=== PATIENT | male | born 1950 | race Caucasian/White ===

== ENCOUNTER 2023-11-05 15:33 | Emergency (ER) | payer MEDICARE, OTHER, SELFPAY ==
[2023-11-05] VITALS (14 sets, daily range): BP systolic 144–184; BP diastolic 83–101; PULSE 71–89; RESP 17–27; O2SAT 95–96; BMI 30.8
--- NOTE | 2023-11-05 15:54 | EKG_ITS ---
[place] [id number] [place] [id number] Test Date: 2023-11-05 Pat Name: Pete Erazo Department: [facility] Room: Gender: Male Electronic Warfare Technician: SAVANNA : 1950 Requested By: Order Number: [id number] Reading MD: Babak Goodman Measurements Intervals [place] Rate: 76 P: 6 IA: 314 QRS: 19 QRSD: 96 T: 3 QT: 388 QTc: 436 Interpretive Statements Sinus rhythm with 1st degree AV block Minimal voltage criteria for LVH, may be normal variant ( R in aVL ) Inferior infarct , age undetermined Cannot rule out Anterior infarct , age undetermined Electronically Signed On 11-05-2023 18:55:47 PDT by Babak Goodman
--- NOTE | 2023-11-05 15:54 | DI.RAD.S_ITS ---
PROCEDURE: XR CHEST 1V INDICATIONS: chest pain TECHNIQUE: One view of the chest was acquired. COMPARISON: None. FINDINGS: Surgical changes and devices: None. Lungs and pleura: Lungs are clear. No pleural effusions or pneumothorax. Mediastinum: Mediastinal contours appear normal. Heart size is enlarged. Bones and chest wall: No suspicious bony lesions. Overlying soft tissues appear unremarkable. IMPRESSION: Cardiomegaly. No focal pulmonary consolidations. Dictated by: Dk Duncan M.D. on 11/05/2023 at 16:44 Approved by: Dk Duncan M.D. on 11/05/2023 at 16:44
--- NOTE | 2023-11-05 15:58 | DI.CT.S_ITS ---
PROCEDURE: CT HEAD/BRAIN WO CON INDICATIONS: recent stroke/PERALES last week TECHNIQUE: Noncontrast 4.5 mm thick angled axial sections acquired from the foramen magnum to the vertex, with coronal and sagittal reformats. For radiation dose reduction, the following was used: automated exposure control, adjustment of mA and/or kV according to patient size. COMPARISON: None. FINDINGS: Image quality: Diagnostic. CSF spaces: Basal cisterns are patent. No extra-axial fluid collections. The ventricles are symmetric in size and shape. Brain: No intracranial bleeds or masses. There is cerebral volume loss for age, with resultant ventricular and sulcal prominence. There are periventricular and deep white matter chronic small vessel ischemic changes. There is intracranial internal carotid artery atherosclerosis. Skull and face: Calvarium and visualized facial bones appear intact, without suspicious lesions. Sinuses: Right maxillary sinus mucous retention cyst is partially visualized. Otherwise, the visualized sinuses and mastoids are clear. IMPRESSION: No acute intracranial pathology. Dictated by: Dk Duncan M.D. on 11/05/2023 at 16:07 Approved by: Dk Duncan M.D. on 11/05/2023 at 16:09
[2023-11-05 16:06] LABS: INR 1.1 (0.9-1.3); Prothrombin Time 12.2 SECONDS (9.4-12.5)
[2023-11-05 16:08] LABS: PTT Partial Thromboplastin Tim 41 SECONDS (25.1-36.5)
[2023-11-05 16:09] LABS: Alanine Aminotransferase 59 IU/L (<50); Albumin 4.5 g/dL (3.5-5.0); Albumin Globulin Ratio 1.3 (1.0-2.8); Alkaline Phosphatase 81 U/L (38-126); Aspartate Aminotransferase 33 IU/L (17-59); BUN Creatinine Ratio 15.2 (6-22); Bilirubin Total 0.7 mg/dL (0.2-1.3); Blood Urea Nitrogen 22 mg/dL (9-20); Calcium 9.8 mg/dL (8.4-10.2); Carbon Dioxide 29 mmol/L (22-32); Chloride 96 mmol/L (98-107); Creatine Kinase 75 U/L (55-170); Estimated Glomerular Filt Rate 51 mL/min (>60); Globulin 3.6 g/dL (1.7-4.1); Glucose 307 mg/dL (80-110); HEMOLYSIS 22 (0-50); Lipase 272 U/L (23-300); Magnesium 2.1 mg/dL (1.6-2.3); Potassium 4.8 mmol/L (3.4-5.1); Sodium 132 mmol/L (137-145); Total Protein 8.1 g/dL (6.3-8.2)
[2023-11-05 16:13] LABS: Add Manual Diff / Slide Review NO; Basophils Absolute Auto 0 /uL (0-100); Basophils Percent Auto 0.5 % (0-2); Eosinophils Absolute Auto 200 /uL (0-450); Eosinophils Percent Auto 2.8 % (2-4); Hematocrit 46.7 % (41-53); Hemoglobin 15.8 g/dL (13.5-17.5); Lymphocytes Absolute Auto 900 /uL (1100-4500); Lymphocytes Percent Auto 10.3 % (25-40); Mean Corpuscular HGB Conc 33.9 % (30-36); Mean Corpuscular Volume 88.4 fL (80-100); Monocytes Absolute Auto 700 /uL (0-900); Neutrophils Absolute Auto 6600 /uL (1500-7000); Neutrophils Percent Auto 78.4 % (50-75); Platelet Count 232 X10^3/uL (150-400); Red Blood Cell Count 5.28 X10^6/uL (4.5-5.9); Red Cell Distribution Width 13.4 % (11.6-14.8); White Blood Cell Count 8.4 X10^3/uL (4.5-11.0)
[2023-11-05 16:21] LABS: NT-proBNP (BNP-Adult 18+) 103 pg/mL (<125); Troponin I < 0.012 ng/mL (0.01-0.034)
--- NOTE | 2023-11-05 18:42 | ED.HA ---
HPI - Headache General Chief Complaint: Headache Stated Complaint: Head Pain, Stroke t-9 Time Seen by Provider: 11/05/23 18:03 Source: patient Mode of arrival: Ambulatory Limitations: no limitations History of Present Illness HPI Narrative: 73-year-old male. Proximally 1 month ago had an episode of a GI bleed. 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 He was taken off that medicine approximately 1 week later had a stroke. All of this happened while he was in [place]. He states that the symptoms that led him to the hospital when he had the stroke were balance issues. He states he still has some balance issues and some issues with doing [id number]-es-faud this left hand but otherwise all of his other symptoms have completely resolved. He was not currently on anticoagulation. He states he was sitting on his couch at home watching TV. He states he was nodding off in his head was flexing forward. He states that he woke up suddenly and lifted his head up when he suddenly got a sharp pain that he states went from the back of his head to the front of his head. He described it as ?a lightning bolt? lasted for seconds. Completely resolved. He currently now states he was just a slight headache what she describes as a ?tension? headache in the back of his head. He reports no other neurologic symptoms to include vision changes, speech issues, change in any balance issues, numbness or tingling in his upper and lower extremities. He denies chest pain, shortness of breath, nausea vomiting. Related Data Allergies Allergy/AdvReac Type Severity Reaction Status Date / Time No Known Drug Allergies Allergy Verified 11/05/23 15:40 Review of Systems Review of Systems ROS Unobtainable: All systems reviewed & are unremarkable except as noted in HPI and below Patient History alcohol intake frequency: holidays/special occasions only Alcohol type: wine Substance Use Type: does not use Exam Initial Vital Signs Initial Vital Signs: Vital Signs Pulse Rate 89 11/05/23 15:40 Respiratory Rate 20 11/05/23 15:40 Blood Pressure 184/101 H 11/05/23 15:40 Pulse Oximetry 96 11/05/23 15:40 Oxygen Delivery Method Room Air 11/05/23 15:40 Const General: cooperative, well developed and No ill appearing HENTN Head: normal to inspection and normocephalic Resp Effort & Inspection: normal respiratory effort Cardio Rate: regular rate GI Inspection: normal to inspection Skin General: no rashes or lesions noted Neuro General: patient alert, patient awake, patient oriented x3 and moves all extremities Cognition: normal cognition Speech: speech normal Motor: muscle tone normal throughout Extrem General: normal to inspection and capillary refill normal Scores GCS Justice coma scale eye opening: Spontaneous Candis coma scale verbal response: Orientated [place] coma scale motor response: Obey commands Justice coma scale total score: 15 Course Orders Ordered: ED Orders 11/05/23 15:48 Complete Blood Count AUTO DIFF Stat Comprehensive Metabolic Panel Stat Lipase Stat Magnesium Stat NT-proBNP (BNP-Adult 18+) Stat PTT Partial Thromboplastin Subhash Stat Prothrombin Time INR Stat Troponin & CK Cardiac Panel Stat 11/05/23 15:54 XR chest 1V Stat EKG-12 Lead Stat 11/05/23 15:58 CT head/brain wo con Stat Vital Signs Vital signs: Vital Signs - 8 hr 11/05/23 15:40 11/05/23 15:41 11/05/23 15:48 Pulse Rate 89 89 87 Respiratory Rate 20 22 Blood Pressure 184/101 H Pulse Oximetry 96 96 96 Oxygen Delivery Method Room Air 11/05/23 15:48 11/05/23 16:08 11/05/23 16:30 Pulse Rate 86 80 Respiratory Rate 18 Blood Pressure 156/93 H Pulse Oximetry 96 Oxygen Delivery Method 11/05/23 17:00 11/05/23 17:12 11/05/23 17:12 Pulse Rate 77 78 Respiratory Rate 21 27 H Blood Pressure 152/94 H Pulse Oximetry 96 96 Oxygen Delivery Method 11/05/23 17:15 11/05/23 17:15 11/05/23 17:30 Pulse Rate 75 74 Respiratory Rate 21 21 Blood Pressure 148/84 H Pulse Oximetry 95 96 Oxygen Delivery Method Room Air 11/05/23 17:30 11/05/23 17:45 11/05/23 17:45 Pulse Rate 76 Respiratory Rate 23 Blood Pressure 144/83 H 146/90 H Pulse Oximetry 96 Oxygen Delivery Method 11/05/23 18:00 11/05/23 18:00 11/05/23 18:15 Pulse Rate 72 71 Respiratory Rate 17 19 Blood Pressure 152/95 H Pulse Oximetry 96 96 Oxygen Delivery Method Room Air 11/05/23 18:15 11/05/23 18:29 11/05/23 18:30 Pulse Rate 71 Respiratory Rate 23 Blood Pressure 157/98 H 158/98 H Pulse Oximetry 96 Oxygen Delivery Method MDM - Headache Lab Data Attestation: I reviewed the patient's lab results. 11/05/23 15:48 11/05/23 15:48 Labs: Lab Results 11/05/23 Range/Units 15:48 WBC 8.4 (4.5-11.0) X10^3/uL RBC 5.28 (4.5-5.9) X10^6/uL Hgb 15.8 (13.5-17.5) g/dL Hct 46.7 (41-53) % MCV 88.4 (80-100) fL MCH 30.0 (26-34) PG MCHC 33.9 (30-36) % RDW 13.4 (11.6-14.8) % Plt Count 232 (150-400) X10^3/uL Neut % (Auto) 78.4 H (50-75) % Lymph % (Auto) 10.3 L (25-40) % [place] % (Auto) 8.0 (3-14) % Eos % (Auto) 2.8 (2-4) % Baso % (Auto) 0.5 (0-2) % Neut # (Auto) 6600 (5467-8430) /uL Lymph # (Auto) 900 L (5444-3087) /uL [place] # (Auto) 700 (0-900) /uL Eos # (Auto) 200 (0-450) /uL Baso # (Auto) 0 (0-100) /uL PT 12.2 (9.4-12.5) SECONDS INR 1.1 (0.9-1.3) APTT 41 H (25.1-36.5) SECONDS Sodium 132 L (137-145) mmol/L Potassium 4.8 (3.4-5.1) mmol/L Chloride 96 L (98-107) mmol/L Carbon Dioxide 29 (22-32) mmol/L BUN 22 H (9-20) mg/dL Creatinine 1.45 H (0.66-1.25) mg/dL Estimated GFR 51 L (>60) mL/min BUN/Creatinine Ratio 15.2 (6-22) Glucose 307 H (80-110) mg/dL Calcium 9.8 (8.4-10.2) mg/dL Magnesium 2.1 (1.6-2.3) mg/dL Total Bilirubin 0.7 (0.2-1.3) mg/dL AST 33 (17-59) IU/L ALT 59 H (<50) IU/L Alkaline Phosphatase 81 (38-126) U/L Total Creatine Kinase 75 (55-170) U/L Troponin I < 0.012 (0.01-0.034) ng/mL NT-Pro-B Natriuret Pep 103 (<125) pg/mL Total Protein 8.1 (6.3-8.2) g/dL Albumin 4.5 (3.5-5.0) g/dL Globulin 3.6 (1.7-4.1) g/dL Albumin/Globulin Ratio 1.3 (1.0-2.8) Lipase 272 (23-300) U/L Imaging Data Chest x-ray: Radiologist's Impression: PROCEDURE: XR CHEST 1V INDICATIONS: chest pain TECHNIQUE: One view of the chest was acquired. COMPARISON: None. FINDINGS: Surgical changes and devices: None. Lungs and pleura: Lungs are clear. No pleural effusions or pneumothorax. Mediastinum: Mediastinal contours appear normal. Heart size is enlarged. Bones and chest wall: No suspicious bony lesions. Overlying soft tissues appear unremarkable. IMPRESSION: Cardiomegaly. No focal pulmonary consolidations. CT scan - head: Radiologist's Impression: PROCEDURE: CT HEAD/BRAIN WO CON INDICATIONS: recent stroke/PERALES last week TECHNIQUE: Noncontrast 4.5 mm thick angled axial sections acquired from the foramen magnum to the vertex, with coronal and sagittal reformats. For radiation dose reduction, the following was used: automated exposure control, adjustment of mA and/or kV according to patient size. COMPARISON: None. FINDINGS: Image quality: Diagnostic. CSF spaces: Basal cisterns are patent. No extra-axial fluid collections. The ventricles are symmetric in size and shape. Brain: No intracranial bleeds or masses. There is cerebral volume loss for age, with resultant ventricular and sulcal prominence. There are periventricular and deep white matter chronic small vessel ischemic changes. There is intracranial internal carotid artery atherosclerosis. Skull and face: Calvarium and visualized facial bones appear intact, without suspicious lesions. Sinuses: Right maxillary sinus mucous retention cyst is partially visualized. Otherwise, the visualized sinuses and mastoids are clear. IMPRESSION: No acute intracranial pathology. ECG Data Attestation: I personally reviewed and interpreted this ECG as follows: Interpretation: Sinus rhythm Ventricular rate is 76 First-degree AV block FL interval through and 4 milliseconds Normal axis LVH No ST T wave changes MDM Narrative Medical decision making narrative: His workup here in the emergency department is unremarkable. I have low suspicion that this is an acute CVA. He was no findings of intracranial hemorrhage were increased intracranial pressure noted on the CT scan. He now has some discomfort palpation to the occipital muscle in the back of his head. I suspect that this was muscular in origin. I had a discussion with the patient regarding this. We will hold on changing any of his medications for now. Will discharge patient home with strict return precautions. He expressed understanding and agreement with the plan. Discharge Plan Departure Patient Disposition: Home Clinical Impression: Headache Instructions: DI for Headache Activity Restrictions/Additional Instructions: Recommend that you continue to follow all of the instructions given to you by your primary care doctor. Contact your primary care doctor for a follow-up. Return to the emergency department for new or worsening symptoms. Stand Alone Forms: Patient Portal/API
== END 2023-11-05 18:53 | disposition home or self-care (01) ==
PROVIDERS: Emergency Medicine; Emergency Provider Emergency Medicine
DX: R51.9 Headache, unspecified (principal); R07.9 Chest pain, unspecified; Z86.73 Personal history of transient ischemic attack (TIA), and cerebral infarction without residual deficits
CPT/HCPCS: 36415; 70450; 71045; 80053; 82550; 83690; 83735; 83880; 84484; 85025; 85610; 85730; 93005; 99284

== ENCOUNTER → 2024-01-13 08:13 | Outpatient (CLI) | payer MEDICARE, OTHER, SELFPAY ==
--- NOTE | 2024-01-13 08:14 | DI.ECHO.S_ITS ---
[facility]---------+ [facility] : : [address] : : [place] : : [id number] : : Phone: [phone] Echocardiogram Report + + :Name: JACQUIE MANCINI Study Date: 01/13/2024 Height: 69 in : :Hospital ReadingLocation: Weight: 218 lb : : Gender: Male BSA: 2.1 m2 : :: 1950 Age: 73 yrs BP: 141/91 mmHg: :Reason For Study: SHORTNESS OF BREATH : :Ordering Physician: MOISE, : :OZ Performed By: Rhina Brooke : :Referring: OZ KRAUS : + + Interpretation Summary 1) Normal left ventricular thickness, size, wall motion, and systolic function (EF 60-65%). 2) Normal right ventricular size with low normal function. 3) No significant valvular abnormalities. 4) No prior Echo available for comparison. Procedure: A two-dimensional transthoracic echocardiogram with color flow and Doppler was performed. The study quality was technically adequate. There is no prior echocardiogram noted for this patient. The patient was in sinus rhythm with heart rates between 68-70 bpm during the exam. Left Ventricle: The left ventricle is normal in size and wall thickness. The ejection fraction is estimated to be 60-65%. Left ventricular systolic function appears normal without focal wall motion abnormalities. Diastolic parameters suggest a relaxation abnormality of the left ventricle, consistent with probable normal filling pressures. Right Ventricle: The right ventricle is normal size. Right ventricular systolic function is at the lower limits of normal. Atria: The left atrial size is normal. Right atrial size is normal. There is no Doppler evidence for an interatrial shunt. Mitral Valve: The mitral valve leaflets appear mildly thickened, but open well. There is trace mitral regurgitation. Aortic Valve: The aortic valve is trileaflet. The aortic valve opens well. There is no aortic valve stenosis. There is trace aortic regurgitation. Tricuspid Valve: The tricuspid valve is normal in structure and function. There is a trace or physiologic amount of tricuspid regurgitation. Pulmonary artery pressures cannot be estimated because of the lack of a measurable TR jet velocity. Pulmonic Valve: The pulmonic valve leaflets are thin and pliable; valve motion is normal. There is mild to moderate pulmonic regurgitation. Great Vessels: The aortic root is borderline dilated. The ascending aorta is at the upper limits of normal in size. The inferior vena cava was not well visualized. Pericardium/ Pleura There is no pericardial effusion. There is no pleural effusion. MMode/2D Measurements & Calculations LVIDd: 4.2 cm LVOT diam: 2.1 cm LVIDs: 3.0 cm Ao root diam: 4.0 cm FS: 28.9 % asc Aorta Diam: 3.9 cm IVSd: 1.00 cm Ao Arch Diam (Prox Trans): 3.3 cm LVPWd: 0.79 cm LV hill. diameter/BSA (cm/m^2): 2.0 LV sys. diameter/BSA (cm/m^2): 1.4 LA A2 area: 16.1 cm2 RA long axis: 5.1 cm LA A4 area: 12.7 cm2 RA area: 13.7 cm2 LA length (vol): 4.8 cm RA vol: 31.6 ml LA vol: 36.0 ml RA : 14.8 ml/m2 LA vol index: 16.8 ml/m2 RVD1 (basal): 3.4 cm TAPSE: 1.5 cm Doppler Measurements & Calculations Ao V2 max: 104.2 cm/sec LVOT Max Feng: 87.8 cm/sec Ao V2 mean: 66.5 cm/sec LV V1 max P.1 mmHg Ao max P.3 mmHg LV V1 VTI: 16.8 cm Ao mean P.1 mmHg CHETAN(I,D): 3.0 cm2 Ao V2 VTI: 20.0 cm CHETAN(V,D): 3.0 cm2 sev ratio: 0.84 CHETAN indexed to BSA (cm^2/m^2): 1.4 MV E max feng: 53.7 cm/sec PA V2 max: 90.6 cm/sec MV A max feng: 84.5 cm/sec PA V2 mean: 65.2 cm/sec MV E/A: 0.64 PA mean P.9 mmHg Med Peak E' Feng: 3.9 cm/sec PA pr(Accel): 49.9 mmHg E/E' med: 13.7 Lat Peak E' Feng: 11.1 cm/sec E/E' lat: 4.8 E/e' average: 9.3 MV dec time: 0.17 sec SV(LVOT): 60.0 ml Reading Physician:09:21 AM
== END ==
LOC: ECHO 08:14
PROVIDERS: Referring Provider Internal Medicine Cardiovascular Disease; Visit Provider Internal Medicine Cardiovascular Disease
DX: I37.1 Nonrheumatic pulmonary valve insufficiency (principal); R06.02 Shortness of breath
CPT/HCPCS: 93306

== ENCOUNTER 2025-01-25 16:33 | Observation (INO) | payer MEDICARE, OTHER, SELFPAY ==
[2025-01-25] VITALS (16 sets, daily range): BP systolic 143–167; BP diastolic 83–95; PULSE 64–76; RESP 17–21; TEMP 36.9; O2SAT 93–96; BMI 31.2
--- NOTE | 2025-01-25 16:58 | DI.US.S_ITS ---
PROCEDURE: US PERIPH VENOUS LOW EXTREM RT INDICATIONS: R/O DVT TECHNIQUE: Real-time imaging, as well as color and pulse Doppler interrogation, were performed of the lower extremity deep veins from the inguinal ligament to the popliteal fossa, with documentation of the visualized calf veins. COMPARISON: None. FINDINGS AND IMPRESSION: DVT identified in the popliteal vein extending to the posterior tibial vein. No thrombus identified elsewhere. Dictated by: Ke Corbin M.D. on 01/25/2025 at 17:59 Approved by: Ke Corbin M.D. on 01/25/2025 at 17:59
--- NOTE | 2025-01-25 16:58 | ED.LOWEXIN ---
HPI - Extremity Injury (Lower) General Chief Complaint: Extremity Injury, Lower Stated Complaint: potential blood clot in r leg after 13 hr flight Time Seen by Provider: 01/25/25 16:57 Source: patient Mode of arrival: Ambulatory Related Data Allergies Allergy/AdvReac Type Severity Reaction Status Date / Time No Known Drug Allergies Allergy Verified 01/25/25 16:52 Patient History alcohol intake frequency: holidays/special occasions only Alcohol type: wine Exam Initial Vital Signs Initial Vital Signs: Vital Signs Temperature 98.4 F 01/25/25 16:52 Pulse Rate 64 01/25/25 16:52 Respiratory Rate 18 01/25/25 16:52 Blood Pressure 167/91 H 01/25/25 16:52 Pulse Oximetry 96 01/25/25 16:52 Oxygen Delivery Method Room Air 01/25/25 16:52 Course Vital Signs Vital signs: Vital Signs - 8 hr 01/25/25 16:52 Temperature 98.4 F Pulse Rate 64 Respiratory Rate 18 Blood Pressure 167/91 H Pulse Oximetry 96 Oxygen Delivery Method Room Air Discharge Plan Departure Referrals: Adrienne Kirkpatrick PA-C [Primary Care Provider, Family Practice]
[2025-01-25 17:30] LABS: Add Manual Diff / Slide Review NO; Hematocrit 45.6 % (41-53); Hemoglobin 15.7 g/dL (13.5-17.5); Lymphocytes Absolute Auto 900 /uL (1100-4500); Mean Corpuscular HGB Conc 34.4 % (30-36); Mean Corpuscular Hemoglobin 30.2 PG (26-34); Mean Corpuscular Volume 87.7 fL (80-100); Platelet Count 225 X10^3/uL (150-400)
[2025-01-25 17:40] LABS: INR 1.1 (0.9-1.3); Prothrombin Time 12.7 SECONDS (9.4-12.5)
[2025-01-25 17:43] LABS: PTT Partial Thromboplastin Tim 34 SECONDS (25.1-36.5)
[2025-01-25 17:44] LABS: Alanine Aminotransferase 40 IU/L (<50); Albumin 4.7 g/dL (3.5-5.0); Albumin Globulin Ratio 1.3 (1.0-2.8); Alkaline Phosphatase 67 U/L (38-126); Blood Urea Nitrogen 25 mg/dL (9-20); Calcium 9.9 mg/dL (8.4-10.2); Carbon Dioxide 26 mmol/L (22-32); Chloride 102 mmol/L (98-107); Estimated Glomerular Filt Rate 57 mL/min (>60); Globulin 3.6 g/dL (1.7-4.1); Glucose 164 mg/dL (70-99); HEMOLYSIS < 15 (0-50); Potassium 4.8 mmol/L (3.4-5.1); Sodium 138 mmol/L (137-145); Total Protein 8.3 g/dL (6.3-8.2)
--- NOTE | 2025-01-25 18:30 | P.HP_ITS ---
History of Present Illness History of Present Illness Date Patient Seen: 01/25/25 Chief complaint: potential blood clot in r leg after 13 hr flight Narrative: Chief complaint: Right leg tightness and pain secondary to DVT after a 13 hour flight History of present illness: 01/25: 74-year-old male with previous history of pulmonary embolus previously treated with Xarelto but stopped due to cost and also had a complication of some rectal bleeding got off of a 13 hour flight with some pain in his right leg that felt like another blood clot came to the emergency room for evaluation Right popliteal DVT was seen on ultrasound. Due to patient's history of bleeding complications patient was given 1 milligram/kilogram Lovenox and placed in observation Review of systems: No fevers chills rigors No chest pain shortness for breath No abdominal pain Physical exam Pre pleasant elderly male no acute distress HEENT unremarkable No respiratory labored No abdominal distention Bilateral lower extremity edema right greater than left Positive Homans sign right Assessment and plan: Popliteal DVT * 1 milligram/kilogram Lovenox tonight * Probable switch to either Lovenox at home or other anticoagulant Code status * Full code Disposition: * Observation 55 minutes were involved in evaluation of this patient including [id number] evaluation discussion with ER provider review of medical history Meds Home Medications and Allergies Allergies Allergy/AdvReac Type Severity Reaction Status Date / Time No Known Drug Allergies Allergy Verified 01/25/25 16:52 Exam Vital Signs (past 8 hours): - 01/25/25 16:52 01/25/25 17:58 01/25/25 17:58 Temperature 98.4 F Pulse Rate 64 66 Respiratory Rate 18 Blood Pressure 167/91 H 156/93 H Pulse Oximetry 96 95 Oxygen Delivery Method Room Air 01/25/25 18:00 01/25/25 18:03 01/25/25 18:04 Temperature Pulse Rate 69 67 Respiratory Rate 20 Blood Pressure 152/94 H Pulse Oximetry 96 96 Oxygen Delivery Method Oxygen Delivery Method Room Air Objective Labs 01/25/25 17:22 01/25/25 17:22 Labs: Laboratory Results - last 24 hr 01/25/25 17:22 WBC 7.5 RBC 5.20 Hgb 15.7 Hct 45.6 MCV 87.7 MCH 30.2 MCHC 34.4 RDW 14.1 Plt Count 225 Neut % (Auto) 75.5 H Lymph % (Auto) 11.8 L [place] % (Auto) 10.3 Eos % (Auto) 1.8 L Baso % (Auto) 0.6 Neut # (Auto) 5600 Lymph # (Auto) 900 L [place] # (Auto) 800 Eos # (Auto) 100 Baso # (Auto) 0 PT 12.7 H INR 1.1 APTT 34 Sodium 138 Potassium 4.8 Chloride 102 Carbon Dioxide 26 BUN 25 H Creatinine 1.32 H Estimated GFR 57 L BUN/Creatinine Ratio 18.9 Glucose 164 H Calcium 9.9 Total Bilirubin 0.7 AST 30 ALT 40 Alkaline Phosphatase 67 Total Protein 8.3 H Albumin 4.7 Globulin 3.6 Albumin/Globulin Ratio 1.3 Assessment & Plan Time-Based Coding :: [TOTAL MINUTES] spent with patient and on the chart (including review of chart, obtaining history, exam, reviewing outside data, placing orders, documenting exam and treatment plan, and counseling patient) on [DATE].
[2025-01-25] MEDS: ENOXAPARIN 100 MG/ML SYRINGE SUBCUT (18:43)
[2025-01-26] VITALS (19 sets, daily range): BP systolic 149–158; BP diastolic 83–84; PULSE 55–70; RESP 16–35; TEMP 36.5; O2SAT 89–95
[2025-01-26] MEDS: METOPROLOL IR 50 MG TABLET 150 MG PO (00:40)
[2025-01-26 01:13] LABS: Culture Indicated Urine Cult Not Indicated
[2025-01-26 06:44] LABS: Hematocrit 45.2 % (41-53); Hemoglobin 15.6 g/dL (13.5-17.5); Platelet Count 201 X10^3/uL (150-400)
--- NOTE | 2025-01-26 07:40 | P.DS_ITS ---
History of Present Illness History of Present Illness Chief complaint: potential blood clot in r leg after 13 hr flight Narrative: Chief complaint: Right leg tightness and pain secondary to DVT after a 13 hour flight History of present illness: 01/25: 74-year-old male with previous history of pulmonary embolus previously treated with Xarelto but stopped due to cost and also had a complication of some rectal bleeding got off of a 13 hour flight with some pain in his right leg that felt like another blood clot came to the emergency room for evaluation Right popliteal DVT was seen on ultrasound. Due to patient's history of bleeding complications patient was given 1 milligram/kilogram Lovenox and placed in observation Review of systems: No fevers chills rigors No chest pain shortness for breath No abdominal pain Physical exam Pre pleasant elderly male no acute distress HEENT unremarkable No respiratory labored No abdominal distention Bilateral lower extremity edema right greater than left Positive Homans sign right Assessment and plan: Popliteal DVT * 1 milligram/kilogram Lovenox tonight * Lovenox at home Code status * Full code Disposition: * Discharge to home 55 minutes were involved in evaluation of this patient including [id number] evaluation discussion with ER provider review of medical history Discharge Providers Provider Date of admission: 01/25/25 18:04 Discharge Date: 01/26/25 Primary care physician: Adrienne Kirkpatrick PA-C Discharge provider: Nawaf Quintana MD Exam Vital Signs (past 8 hours): - 01/26/25 00:00 01/26/25 00:30 01/26/25 01:00 Pulse Rate 70 67 68 Respiratory Rate 16 17 16 Blood Pressure Pulse Oximetry 93 90 L 01/26/25 01:30 01/26/25 02:00 01/26/25 02:30 Pulse Rate 63 62 56 L Respiratory Rate 16 17 17 Blood Pressure Pulse Oximetry 91 91 91 01/26/25 03:00 01/26/25 03:30 01/26/25 04:00 Pulse Rate 57 L 56 L 57 L Respiratory Rate 17 16 25 H Blood Pressure Pulse Oximetry 91 92 93 01/26/25 04:30 01/26/25 04:53 01/26/25 04:53 Pulse Rate 58 L 60 Respiratory Rate 22 26 H Blood Pressure 149/84 H Pulse Oximetry 93 94 01/26/25 05:00 01/26/25 05:30 Pulse Rate 65 57 L Respiratory Rate 29 H 16 Blood Pressure Pulse Oximetry 93 92 Oxygen Delivery Method Room Air Objective Labs 01/26/25 06:35 01/25/25 17:22 Labs: Laboratory Results - last 24 hr 01/25/25 01/26/25 01/26/25 17:22 00:45 06:35 WBC 7.5 RBC 5.20 Hgb 15.7 15.6 Hct 45.6 45.2 MCV 87.7 MCH 30.2 MCHC 34.4 RDW 14.1 Plt Count 225 201 Neut % (Auto) 75.5 H Lymph % (Auto) 11.8 L [place] % (Auto) 10.3 Eos % (Auto) 1.8 L Baso % (Auto) 0.6 Neut # (Auto) 5600 Lymph # (Auto) 900 L [place] # (Auto) 800 Eos # (Auto) 100 Baso # (Auto) 0 PT 12.7 H INR 1.1 APTT 34 Sodium 138 Potassium 4.8 Chloride 102 Carbon Dioxide 26 BUN 25 H Creatinine 1.32 H Estimated GFR 57 L BUN/Creatinine Ratio 18.9 Glucose 164 H Calcium 9.9 Total Bilirubin 0.7 AST 30 ALT 40 Alkaline Phosphatase 67 Total Protein 8.3 H Albumin 4.7 Globulin 3.6 Albumin/Globulin Ratio 1.3 Urine RBC 0-1/hpf Urine WBC None seen Ur Squamous Epith Cells None seen Urine Bacteria None seen Ur Culture Indicated? Cult not indicated Vol Urine Centrifuged 10ml (spun) Discharge Plan Discharge orders & Medications Discharge Orders: Discharge (Order); Ordered 01/26/25 Ordered By: Nawaf Quintana Prescriptions: New enoxaparin 100 mg/mL syringe 100 mg SUBCUT Q12H Qty: 60 2RF Continued metoprolol tartrate 100 mg tablet 150 mg PO BID clopidogrel 75 mg tablet 75 mg PO DAILY amlodipine 10 mg tablet 10 mg PO DAILY glimepiride 4 mg tablet 4 mg PO BID benazepril 40 mg tablet 40 mg PO DAILY ezetimibe 10 mg tablet 10 mg PO DAILY rosuvastatin 5 mg tablet 5 mg PO ONCE PM Follow up/Referrals: Adrienne Kirkpatrick PA-C [Primary Care Provider, [facility]] Discharge Data Primary Care Provider: Adrienne Kirkpatrick
--- NOTE | 2025-01-26 07:46 | PC.NURSE ---
Pt orientedx4. Denies needing anything at this time. Denies SOB or Pain. States the stickers on his chest keep pulling on his chest hair which is bugging him
[2025-01-26] MEDS: ENOXAPARIN 100 MG/ML SYRINGE SUBCUT (08:31)
[2025-01-26] MEDS: CLOPIDOGREL 75 MG TABLET PO (08:32)
== END 2025-01-26 08:53 | disposition home or self-care (01) ==
LOC: ED 17:36 → AC 18:25
PROVIDERS: Admitting Provider Internal Medicine; Emergency Provider Internal Medicine; PCP Physician Assistant Medical; Referring Provider Emergency Medicine; Visit Provider Internal Medicine
DX: I82.431 Acute embolism and thrombosis of right popliteal vein (principal); Z86.711 Personal history of pulmonary embolism; Z87.19 Personal history of other diseases of the digestive system
CPT/HCPCS: 80053; 81003; 81015; 85014; 85018; 85025; 85049; 85610; 85730; 93971; 96372; 99283; 99284; G0378; J1650